=== PATIENT | male | born 1970 | race African-American/Black ===

== ENCOUNTER 2017-11-11 02:11 | Emergency (ER) | payer OTHER ==
[~2017-11-11] VITALS: Ht 175.3 cm; Wt 120.5 kg
[~2017-11-11 02:11] MED LIST: DOXYCYCLINE 10100 MG PO; PREDNISONE20 MG PO
[2017-11-11 02:15] VITALS: TEMP 98.5
[2017-11-11 02:44] VITALS: BP 138/71
[2017-11-11 02:47] LABS: BASO % 0.3 % (0.0-2.0); EOS # 0.3 (0.0-0.7); EOS % 4.3 % (0-4.0); GRAN # 3.6 (1.4-6.5); GRAN % 52.2 % (42.2-75.2); HEMATOCRIT 41.6 % (42.0-52.0); HEMOGLOBIN 13.6 g/dl (13.5-18.0); LYMPH # 2.3 (1.2-3.4); LYMPH % 32.9 % (20.0-51.0); MEAN CELL VOLUME 83 fl (80.0-100.0); MEAN CORPUSCULAR HEMOGLOBIN 27 pg (27.0-31.0); MEAN CORPUSCULAR HGB CONC 33 g/dl (33.0-37.0); MEAN PLATELET VOLUME 9.4 fl (7.4-10.4); MONO # 0.7 (0.1-0.6); PLATELET COUNT 232 K/mm3 (130-400); RED BLOOD COUNT 5.02 M/mm3 (4.20-5.60); REDCELL DISTRIBUTION WIDTH-CV 14.4 % (11.5-14.5)
[2017-11-11 02:57] LABS: ALANINE AMINOTRANSFERASE 39 U/L (21-72); ALBUMIN 3.9 gm/dL (3.5-5.0); ALKALINE PHOSPHATASE 74 U/L (50-136); ANION GAP 11 mmol/L (7-16); AST,SGOT 27 U/L (15-37); BILIRUBIN,TOTAL 0.1 mg/dL (0.0-1.0); BLOOD UREA NITROGEN 19 mg/dL (9-20); CALCIUM 8.5 mg/dL (8.4-10.2); CARBON DIOXIDE 29 mmol/L (22-30); CHLORIDE 99 mmol/L (98-107); GLUCOSE 115 mg/dL (74-106); POTASSIUM 3.7 mmol/L (3.4-5.0); SODIUM 139 mmol/L (137-145); TOTAL PROTEIN 7.6 gm/dL (6.4-8.2)
[2017-11-11 03:09] LABS: TROPONIN-I < 0.012 ng/mL (0.000-0.034)
[2017-11-11] MEDS ORDERED: ZITHROMAX 250M250 MG PO (04:52)
[2017-11-11 05:30] VITALS: PULSE 93
== END 2017-11-11 05:43 | disposition home or self-care (01) ==
LOC: COL.ER 02:11
PROVIDERS: Emergency Medicine
DX: R07.9 Chest pain, unspecified (principal); R00.2 Palpitations; J45.909 Unspecified asthma, uncomplicated; G47.30 Sleep apnea, unspecified
CPT/HCPCS: J7512

== ENCOUNTER 2019-07-23 02:07 | Emergency (ER) | payer OTHER ==
[~2019-07-23] VITALS: Ht 175.3 cm; Wt 122.7 kg
[~2019-07-23 02:07] MED LIST changes: +ZITHROMAX 250M250 MG PO
[2019-07-23 02:25] VITALS: TEMP 97
[2019-07-23] MEDS ORDERED: NORCO 325 MG-51 TAB PO (03:33)
[2019-07-23] MEDS ORDERED: TESSALON PERLE200 MG PO (03:33)
[2019-07-23 04:02] VITALS: BP 142/107; PULSE 97
== END 2019-07-23 04:02 | disposition home or self-care (01) ==
LOC: COL.ER 02:07
DX: S29.011A Strain of muscle and tendon of front wall of thorax, initial encounter (principal); X50.3XXA Overexertion from repetitive movements, initial encounter
CPT/HCPCS: J1885